=== PATIENT | female | born 1960 | race Caucasian/White ===

== ENCOUNTER 2021-04-10 11:10 | Outpatient (CLI) | payer OTHER, SELFPAY ==
--- NOTE | 2021-04-10 11:30 | MM_ITS ---
WS: [id number] BILATERAL DIGITAL SCREENING MAMMOGRAPHY WITH CAD CLINICAL INFORMATION: screening HISTORY: Screening mammogram. No current complaints. COMPARISON: 2018 TECHNIQUE: Bilateral CC and MLO views. FINDINGS: Bilateral breast implants. Vascular calcifications are unchanged. Implants appear mammograp hically intact. Dense parenchymal tissue upper outer left breast is similar in appearance to previous examinations. M ore focal ovoid density upper outer left breast measuring 12 mm appears more prominent compared to pr evious. Recommend further evaluation with spot compression views and ultrasound. Scattered fibroglandular densities bilaterally. Punctate and lucent centered calcifications. Right b reast is unchanged. MM/[place] [id number] IMPRESSION: BI-RADS: 0-Incomplete: Need additional imaging evaluation FOLLOW UP: Need Additional Imaging RECOMMEND LEFT BREAST DIAGNOSTIC MAMMOGRAPHY AND ULTRASOUND FOR FURTHER EVALUAT ION.
== END 2021-04-10 11:11 | disposition home or self-care (01) ==
LOC: RADSHAW 11:15
PROVIDERS: PCP Family Medicine; Visit Provider Obstetrics & Gynecology
DX: Z12.31 Encounter for screening mammogram for malignant neoplasm of breast (principal)
CPT/HCPCS: 77067

== ENCOUNTER 2021-04-27 07:44 | Outpatient (CLI) | payer OTHER, SELFPAY ==
--- NOTE | 2021-04-27 08:00 | MM_ITS ---
WS: [id number] LEFT DIGITAL MAMMOGRAPHY WITH CAD CLINICAL INFORMATION: R92.8 - Other abnormal and inconclusive findings on diagn... COMPARISON: April 10, 2021 TECHNIQUE: 3 views of the left breast were obtained. FINDINGS: Scattered fibroglandular densities of the left breast. Oval density upper outer left breast partially compresses out on the spot compression views. 6 mm asymmetric density adjacent to the breast implant likely corresponds to the ultrasound nodule along the posterior nipple line. Ultrasound reporting be low. ULTRASOUND BREAST LEFT TECHNIQUE: Ultrasound left breast focused area of concern. CLINICAL INFORMATION: R92.8 - Other abnormal and inconclusive findings on diagn... FINDINGS: Ultrasound left breast 12 to 3:00 position. Hypoechoic lesion at the 2:00 position measuring 4 x 3 x 3 mm. This is tiny but appears solid and taller than wide. This is adjacent to the breast implant but Recommend further evaluation with ultrasound-guided biopsy. Shadowing calcification at the 3:00 position likely incidental. MM/[place] [id number] IMPRESSION: BI-RADS: 4-Suspicious Finding-Biopsy Should Be Considered FOLLOW UP: US Guided Biopsy Recommended RECOMMEND ULTRASOUND-GUIDED BIOPSY LEFT BREAST LESION
--- NOTE | 2021-04-27 08:45 | US_ITS ---
WS: [id number] LEFT DIGITAL MAMMOGRAPHY WITH CAD CLINICAL INFORMATION: R92.8 - Other abnormal and inconclusive findings on diagn... COMPARISON: April 10, 2021 TECHNIQUE: 3 views of the left breast were obtained. FINDINGS: Scattered fibroglandular densities of the left breast. Oval density upper outer left breast partially compresses out on the spot compression views. 6 mm asymmetric density adjacent to the breast implant likely corresponds to the ultrasound nodule along the posterior nipple line. Ultrasound reporting be low. ULTRASOUND BREAST LEFT TECHNIQUE: Ultrasound left breast focused area of concern. CLINICAL INFORMATION: R92.8 - Other abnormal and inconclusive findings on diagn... FINDINGS: Ultrasound left breast 12 to 3:00 position. Hypoechoic lesion at the 2:00 position measuring 4 x 3 x 3 mm. This is tiny but appears solid and taller than wide. This is adjacent to the breast implant but Recommend further evaluation with ultrasound-guided biopsy. Shadowing calcification at the 3:00 position likely incidental. US/US breast LT limited* [id number] IMPRESSION: BI-RADS: 4-Suspicious Finding-Biopsy Should Be Considered FOLLOW UP: US Guided Biopsy Recommended RECOMMEND ULTRASOUND-GUIDED BIOPSY LEFT BREAST LESION
== END 2021-04-27 07:45 | disposition home or self-care (01) ==
LOC: RADSHAW 07:47
PROVIDERS: PCP Family Medicine; Visit Provider Obstetrics & Gynecology
DX: R92.8 Other abnormal and inconclusive findings on diagnostic imaging of breast (principal); N63.20 Unspecified lump in the left breast, unspecified quadrant
CPT/HCPCS: 76642; 77065

== ENCOUNTER 2021-05-08 11:53 | Outpatient (CLI) | payer OTHER, SELFPAY ==
--- NOTE | 2021-05-08 13:00 | US_ITS ---
WS: [id number] ULTRASOUND-GUIDED LEFT BREAST BIOPSY CLINICAL INFORMATION: R92.8 - Other abnormal and inconclusive findings on diagn... COMPARISON: None. FINDINGS: The procedure including risks, benefits, and complications were discussed with the patient who agreed to proceed. Using sterile technique patient was prepped and draped in the usual sterile fashion. Aft er 1% lidocaine utilizing real-time ultrasound guidance 5 14-gauge cores were obtained of the left br east lesion at the 2 o'clock position. Subsequently a titanium clip was placed in the biopsy cavity. No immediate complications. Pathology demonstrates A. Breast, left , ultrasound-guided biopsy: -Benign breast tissue with stromal sclerosis and ductal ectasia. -No malignancy identified. US/[place] [id number] IMPRESSION: 1. Uncomplicated ultrasound-guided left breast biopsy. 2. The pathology demonstrates benign breast tissue. No malignancy identified. 3. Recommend 6 month follow-up left breast diagnostic mammography and ultrasou nd postbiopsy BI-RADS: 2-Benign FOLLOW UP: 6 Month Follow-up
== END 2021-05-08 11:54 | disposition home or self-care (01) ==
LOC: RAD 11:57
PROVIDERS: PCP Family Medicine; Visit Provider Obstetrics & Gynecology
DX: N63.21 Unspecified lump in the left breast, upper outer quadrant (principal); N60.42 Mammary duct ectasia of left breast
CPT/HCPCS: 19083; 88305

== ENCOUNTER 2021-11-08 08:35 | Outpatient (CLI) | payer OTHER, SELFPAY ==
--- NOTE | 2021-11-08 09:00 | MM_ITS ---
WS: [id number] LEFT 3D TOMOSYNTHESIS DIGITAL MAMMOGRAPHY WITH CAD CLINICAL INFORMATION: R92.8 - Other abnormal and inconclusive findings on diagn.. COMPARISON: May 08, 2021 TECHNIQUE: 5 views of the left breast were obtained. FINDINGS: Scattered fibroglandular densities of the left breast. LEFT breast implant appears intact. Biopsy cli p upper outer LEFT breast. No new suspicious abnormality. Ultrasound is pending. ULTRASOUND BREAST LEFT TECHNIQUE: Ultrasound left breast focused area of concern. CLINICAL INFORMATION: R92.8 - Other abnormal and inconclusive findings on diagn.. FINDINGS: Ultrasound LEFT breast at the 2:00 position 3 cm from the nipple. Again seen is the small hypoechoic lesion with adjacent biopsy clip. This is unchanged in appearance from the prior examination. No othe r suspicious findings. MM/[place] [id number] IMPRESSION: BI-RADS: 2-Benign FOLLOW UP: 1 Year Follow-up Recommend return to annual screening mammography.
--- NOTE | 2021-11-08 09:30 | US_ITS ---
WS: [id number] LEFT 3D TOMOSYNTHESIS DIGITAL MAMMOGRAPHY WITH CAD CLINICAL INFORMATION: R92.8 - Other abnormal and inconclusive findings on diagn.. COMPARISON: May 08, 2021 TECHNIQUE: 5 views of the left breast were obtained. FINDINGS: Scattered fibroglandular densities of the left breast. LEFT breast implant appears intact. Biopsy cli p upper outer LEFT breast. No new suspicious abnormality. Ultrasound is pending. ULTRASOUND BREAST LEFT TECHNIQUE: Ultrasound left breast focused area of concern. CLINICAL INFORMATION: R92.8 - Other abnormal and inconclusive findings on diagn.. FINDINGS: Ultrasound LEFT breast at the 2:00 position 3 cm from the nipple. Again seen is the small hypoechoic lesion with adjacent biopsy clip. This is unchanged in appearance from the prior examination. No othe r suspicious findings. US/US breast LT limited* [id number] IMPRESSION: BI-RADS: 2-Benign FOLLOW UP: 1 Year Follow-up Recommend return to annual screening mammography.
== END 2021-11-08 08:36 | disposition home or self-care (01) ==
PROVIDERS: PCP Family Medicine; Visit Provider Obstetrics & Gynecology
DX: R92.8 Other abnormal and inconclusive findings on diagnostic imaging of breast (principal)
CPT/HCPCS: 76642; 77061

== ENCOUNTER 2022-05-22 11:22 | Outpatient (CLI) | payer MEDICAID, SELFPAY ==
--- NOTE | 2022-05-22 11:35 | MM_ITS ---
WS: [id number] BILATERAL SCREENING DIGITAL BREAST MAMMOGRAPHY WITH LAURITA DISPLACEMENT VIEWS. CAD PERFORMED. HISTORY: SCREENING COMPARISON: 11/08/2021 and 04/27/2021 Bilateral craniocaudal and mediolateral oblique views are performed with tomosynthesis and SM. Laurita displacement views in CC and MLO projection also performed. Breasts composition: There are scattered areas of fibroglandular density. Implants are intact. Similar appearance as the prior study. No suspicious masses or calcifications. MM/[place] [id number] IMPRESSION: BI-RADS: 2-Benign FOLLOW-UP: 1 Year Follow-up
== END 2022-05-22 11:23 | disposition home or self-care (01) ==
PROVIDERS: PCP Family Medicine; Visit Provider Obstetrics & Gynecology
DX: Z12.31 Encounter for screening mammogram for malignant neoplasm of breast (principal)
CPT/HCPCS: 77063; 77067

== ENCOUNTER 2023-01-17 10:11 | Outpatient (CLI) | payer MEDICAID, SELFPAY ==
--- NOTE | 2023-01-17 10:20 | MM_ITS ---
WS: [id number] BILATERAL 3D TOMOSYNTHESIS DIGITAL SCREENING MAMMOGRAPHY WITH CAD CLINICAL INFORMATION: SCREENING HISTORY: Screening mammogram. No current complaints. COMPARISON: 2021 TECHNIQUE: Bilateral CC and MLO views. FINDINGS: Bilateral breast implants. Capsular calcifications RIGHT breast. Scattered fibroglandular densities bilaterally. No suspicious focal mass, asymmetry, calcifications, or architectural distortion. No evidence of malignancy. Biopsy clip LEFT breast. Benign calcification LEFT breast. MM/[place] [id number] IMPRESSION: BI-RADS: 2-Benign FOLLOW UP: 1 Year Follow-up Recommend return to annual screening mammography.
== END 2023-01-17 10:12 | disposition home or self-care (01) ==
PROVIDERS: PCP Family Medicine; Visit Provider Obstetrics & Gynecology
DX: Z12.31 Encounter for screening mammogram for malignant neoplasm of breast (principal)
CPT/HCPCS: 77063; 77067

== ENCOUNTER 2024-01-29 13:49 | Outpatient (CLI) | payer MEDICAID, SELFPAY ==
--- NOTE | 2024-01-29 13:52 | MM_ITS ---
WS: [id number] BILATERAL SCREENING DIGITAL BREAST MAMMOGRAPHY WITH LAURITA DISPLACEMENT VIEWS. CAD PERFORMED. HISTORY: SCREENING COMPARISON: 01/17/2023, 05/22/2022 Bilateral craniocaudal and mediolateral oblique views are performed with tomosynthesis and SM. Laurita displacement views in CC and MLO projection also performed. Breasts composition: There are scattered areas of fibroglandular density. Capsular contraction involving the RIGHT breast implant. There are a few scattered benign calcificati ons LEFT breast. No suspicious masses. MM/[place] [id number] IMPRESSION: BI-RADS: 2-Benign FOLLOW-UP: 1 Year Follow-up
== END 2024-01-29 13:50 | disposition home or self-care (01) ==
LOC: RAD 13:50
PROVIDERS: PCP Family Medicine; Visit Provider Nurse Practitioner Women's Health
DX: Z12.31 Encounter for screening mammogram for malignant neoplasm of breast (principal); R92.323 Mammographic fibroglandular density, bilateral breasts; T85.44XA Capsular contracture of breast implant, initial encounter; R92.1 Mammographic calcification found on diagnostic imaging of breast; X58.XXXA Exposure to other specified factors, initial encounter
CPT/HCPCS: 77063; 77067

== ENCOUNTER → 2024-06-01 15:30 | Outpatient (BNVA) | payer MEDICAID, SELFPAY | PROVIDERS: PCP Family Medicine; Visit Provider Nurse Practitioner Women's Health | DX: Z01.419 Encounter for gynecological examination (general) (routine) without abnormal findings (principal) | CPT/HCPCS: 87624 ==

== ENCOUNTER → 2024-10-11 15:21 | Outpatient (BNVA) | payer MEDICARE, OTHER, SELFPAY | PROVIDERS: PCP Family Medicine; Visit Provider Nurse Practitioner Family | DX: L71.8 Other rosacea (principal); Q82.5 Congenital non-neoplastic nevus; L57.8 Other skin changes due to chronic exposure to nonionizing radiation; L82.1 Other seborrheic keratosis; L82.0 Inflamed seborrheic keratosis; L29.89 Other pruritus; Z78.9 Other specified health status; D48.5 Neoplasm of uncertain behavior of skin; L57.0 Actinic keratosis | CPT/HCPCS: 17000; 17110; 69100; 99213 ==

== ENCOUNTER 2025-01-31 12:29 | Outpatient (CLI) | payer MEDICARE, OTHER, SELFPAY ==
--- NOTE | 2025-01-31 12:32 | MM_ITS ---
WS: [id number] BILATERAL 3D TOMOSYNTHESIS DIGITAL SCREENING MAMMOGRAPHY WITH CAD CLINICAL INFORMATION: SCREENING HISTORY: Screening mammogram. No current complaints. COMPARISON: 2023 TECHNIQUE: Bilateral CC and MLO views. FINDINGS: Bilateral breast implants appear unchanged. Calcified capsular contraction RIGHT implant. Scattered fibroglandular densities bilaterally. No suspicious focal mass, asymmetry, calcifications, or architectural distortion. No evidence of malignancy. Benign calcifications LEFT breast. MM/MM scr tomosynthesis [id number] IMPRESSION: DENSITY: There are scattered areas of fibroglandular density. BI-RADS: 2 - Benign. FOLLOW UP: 1 Year Follow-up Recommend return to annual screening mammography.
== END 2025-01-31 12:30 | disposition home or self-care (01) ==
LOC: RAD 12:31
PROVIDERS: PCP Family Medicine; Visit Provider Nurse Practitioner Women's Health
DX: Z12.31 Encounter for screening mammogram for malignant neoplasm of breast (principal)
CPT/HCPCS: 77063; 77067

== ENCOUNTER → 2025-04-12 13:50 | Outpatient (BNVA) | payer MEDICARE, OTHER, SELFPAY | PROVIDERS: PCP Family Medicine; Visit Provider Nurse Practitioner Family | DX: L71.8 Other rosacea (principal); Q82.5 Congenital non-neoplastic nevus; L82.1 Other seborrheic keratosis; L57.8 Other skin changes due to chronic exposure to nonionizing radiation; D48.5 Neoplasm of uncertain behavior of skin; L57.0 Actinic keratosis | CPT/HCPCS: 11102; 17000; 99213 ==